=== PATIENT | male | born 1960 ===

== ENCOUNTER 2021-07-08 10:08 | Inpatient (IN) | payer MEDICAID ==
[2021-07-08] VITALS (13 sets, daily range): BP systolic 124–139; BP diastolic 78–86
[~2021-07-08] VITALS: Ht 170 cm; Wt 65.1 kg
[2021-07-08] MEDS ORDERED: CEFEPIME INJECTION 1,000 MG in WATER (STERILE) FOR INJECTION 10 ML IV ONE (10:30)
[2021-07-08 10:37] LABS: BASOPHILS % (AUTO) 0 % (0-10); EOSINOPHILS % (AUTO) 0 % (0-10); HEMATOCRIT 41 % (40-54); HEMOGLOBIN 13.6 g/dL (13.3-17.7); LYMPHOCYTES # (AUTO) 1.3 10^3/uL (1.0-4.0); LYMPHOCYTES % (AUTO) 21 % (12-44); MEAN CORPUSCULAR HEMOGLOBIN 31 pg (25-34); MEAN CORPUSCULAR HGB CONC 33 g/dL (32-36); MEAN CORPUSCULAR VOLUME 92 fL (80-99); MEAN PLATELET VOLUME 10.4 fL (9.0-12.2); MONOCYTES # (AUTO) 0.8 10^3/uL (0.0-1.0); MONOCYTES % (AUTO) 12 % (0-12); NEUTROPHILS # (AUTO) 4.3 10^3/uL (1.8-7.8); NEUTROPHILS % (AUTO) 67 % (42-75); PLATELET COUNT 288 10^3/uL (130-400); WHITE BLOOD COUNT 6.4 10^3/uL (4.3-11.0)
[2021-07-08 10:57] LABS: ALBUMIN 3.1 GM/DL (3.2-4.5); BILIRUBIN,TOTAL 0.7 MG/DL (0.1-1.0); CALCIUM 8.5 MG/DL (8.5-10.1); CREATININE SERUM 1.03 MG/DL (0.60-1.30); POTASSIUM 4.4 MMOL/L (3.6-5.0); TOTAL PROTEIN 6.7 GM/DL (6.4-8.2)
--- NOTE | 2021-07-08 11:02 | Diagnostic Imaging Report ---
INDICATION: Covid positive, sepsis Frontal chest obtained at 1056 a.m. and compared to 07/23/2008. Heart and mediastinal silhouette are normal in appearance. There are patchy infiltrates in the perihilar region and lung bases on both sides suspicious for Covid pneumonia. There is no pneumothorax or pleural fluid. IMPRESSION: Bilateral infiltrates are present suspicious for Covid pneumonia. Dictated by: Dictated on workstation # [id number]
[2021-07-08 11:05] LABS: FIBRIN DEGRADATION PRODUCTS 0.9 UG/ML (0.00-0.49); INR 1.1 (0.8-1.4); PROTHROMBIN TIME PATIENT 14.5 SEC (12.2-14.7)
[2021-07-08 11:25] LABS: ABG BASE EXCESS 5.2 MMOL/L (-2.5-2.5); ABG OXYGEN SATURATION 100 % (94-100); ABG PCO2 41 MMHG (35-45); ABG PH 7.46 (7.37-7.43); ABG PO2 216 MMHG (79-93); ABG TCO2 30.2 MMOL/L (21.0-31.0)
[2021-07-08 11:31] LABS: ALLENS TEST YES-POS; INSPIRED O2 100%; PATIENT TEMP 98.5; VENTILATOR NO
[2021-07-08] MEDS ORDERED: NS IV 1000 ML 1,000 ML IV SCH (11:45)
[2021-07-08] MEDS ORDERED: inSUlin (REGULAR) HUMAN 1 UNIT/0.01 ML (CHARGE PER UNIT) SC ONE (11:45)
[2021-07-08] MEDS ORDERED: ENOXAPARIN 80 MG/0.8 ML (LOVENOX) SYR ONE (11:56)
[2021-07-08] MEDS ORDERED: ENOXAPARIN 80 MG/0.8 ML (LOVENOX) SYR SC ONE (12:00)
--- NOTE | 2021-07-08 12:05 | ED General ---
General Chief Complaint: Cough/Cold/Flu Symptoms Stated Complaint: COVID + Nursing Triage Note: PT FROM INFUSION PT SAT 83%. PT IN RESP DISTRESS, PT HAS COVID, PT DUSKY AND NAIL BEDS BLUEISH. PT HAS SL IN R AC #20 BY INFUSION AREA Source of Information: Patient Exam Limitations: No Limitations History of Present Illness Date Seen by Provider: Jul 08, 2021 Time Seen by Provider: 10:10 Initial Comments This 60-year-old gentleman presents to the emergency room with staff from the infusion clinic where he was to receive monoclonal antibodies but was found to be cyanotic and hypoxic. He has not been ill with COVID-19 since June 27. He tested positive on July 02 at the [facility] walk-in clinic. He reports shortness of breath and a cough that will stop. He otherwise denies other symptoms such as vomiting, diarrhea, pain, etc. Oxygen saturation was 83% on arrival to the ER. He was very pale and cyanotic in appearance. He was immediately laid in the prone position with high flow oxygen mask applied. This maintain saturations in the low 90s. RT was called to supply Vapotherm. Patient was not vaccinated. He has no local provider and he does not take any prescribed medications daily. He did receive a prescription for a couple of medications related to Covid. He does not know what these are. His and children are also ill. Allergies and Home Medications Allergies Coded Allergies: No Known Drug Allergies (Unverified , 07/08/21) Patient Home Medication List Home Medication List Reviewed: Yes Review of Systems Review of Systems Constitutional: see HPI, diaphoresis, weakness EENTM: no symptoms reported Respiratory: see HPI Cardiovascular: no symptoms reported Gastrointestinal: no symptoms reported Genitourinary: no symptoms reported Musculoskeletal: no symptoms reported Skin: no symptoms reported Psychiatric/Neurological: No Symptoms Reported Hematologic/Lymphatic: No Symptoms Reported Immunological/Allergic: no symptoms reported Past Ontmmqn-Klmdlb-Vqfaqi Hx Patient Social History Tobacco Use?: No Substance use?: No Alcohol Use?: No Past Medical History Surgeries: No Respiratory: No Cardiac: No Neurological: No Reproductive Disorders: No Genitourinary: No Gastrointestinal: No Musculoskeletal: No Endocrine: Yes Diabetes, Non-Insulin dep HEENT: No Cancer: No Psychosocial: No Physical Exam-Suspected Sepsis Physical Exam Vital Signs Vital Signs - First Documented 07/08/21 10:08 Pulse 81 Resp 42 B/P (MAP) 129/78 (95) Pulse Ox 83 O2 Delivery Room Air Capillary Refill : Less Than 3 Seconds Blood Pressure Mean: 95 Height, Weight, BMI Height: '" Weight: lbs. oz. 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 Norm as Tested Skin: warm/dry, diaphoresis, other (Cyanosis resolved with application of oxygen) Focused Exam Lactate Level 07/08/21 10:27: Lactic Acid Level 2.66*H Lactic Acid Level Laboratory Tests Test 07/08/21 10:27 Lactic Acid Level 2.66 MMOL/L (0.50-2.00) *H Progress/Results/Core Measures Suspected Sepsis SIRS Temperature: Pulse: 81 Respiratory Rate: 42 Laboratory Tests 07/08/21 10:27: White Blood Count 6.4 Blood Pressure 129 /78 Mean: 95 07/08/21 10:27: Lactic Acid Level 2.66*H Laboratory Tests 07/08/21 10:27: Creatinine 1.03, INR Comment 1.1, Platelet Count 288, Total Bilirubin 0.7 Results/Orders Lab Results Laboratory Tests Test 07/08/21 10:27 07/08/21 11:20 Range/Units White Blood Count 6.4 4.3-11.0 10^3/uL Red Blood Count 4.43 4.30-5.52 10^6/uL Hemoglobin 13.6 13.3-17.7 g/dL Hematocrit 41 40-54 % Mean Corpuscular Volume 92 80-99 fL Mean Corpuscular Hemoglobin 31 25-34 pg Mean Corpuscular Hemoglobin Concent 33 32-36 g/dL Red Cell Distribution Width 12.3 10.0-14.5 % Platelet Count 288 130-400 10^3/uL Mean Platelet Volume 10.4 9.0-12.2 fL Immature Granulocyte % (Auto) 1 % Neutrophils (%) (Auto) 67 42-75 % Lymphocytes (%) (Auto) 21 12-44 % Monocytes (%) (Auto) 12 0-12 % Eosinophils (%) (Auto) 0 0-10 % Basophils (%) (Auto) 0 0-10 % Neutrophils # (Auto) 4.3 1.8-7.8 10^3/uL Lymphocytes # (Auto) 1.3 1.0-4.0 10^3/uL Monocytes # (Auto) 0.8 0.0-1.0 10^3/uL Eosinophils # (Auto) 0.0 0.0-0.3 10^3/uL Basophils # (Auto) 0.0 0.0-0.1 10^3/uL Immature Granulocyte # (Auto) 0.0 0.0-0.1 10^3/uL Prothrombin Time 14.5 12.2-14.7 SEC INR Comment 1.1 0.8-1.4 Activated Partial Thromboplast Time 36 H 24-35 SEC D-Dimer 0.90 H 0.00-0.49 UG/ML Sodium Level 135 135-145 MMOL/L Potassium Level 4.4 3.6-5.0 MMOL/L Chloride Level 97 L 98-107 MMOL/L Carbon Dioxide Level 29 21-32 MMOL/L Anion Gap 9 5-14 MMOL/L Blood Urea Nitrogen 14 7-18 MG/DL Creatinine 1.03 0.60-1.30 MG/DL Estimat Glomerular Filtration Rate 74 BUN/Creatinine Ratio 14 Glucose Level 404 *H 70-105 MG/DL Lactic Acid Level 2.66 *H 0.50-2.00 MMOL/L Calcium Level 8.5 8.5-10.1 MG/DL Corrected Calcium 9.2 8.5-10.1 MG/DL Total Bilirubin 0.7 0.1-1.0 MG/DL Aspartate Amino Transf (AST/SGOT) 62 H 5-34 U/L Alanine Aminotransferase (ALT/SGPT) 54 0-55 U/L Alkaline Phosphatase 49 40-136 U/L Lactate Dehydrogenase 404 H 125-220 U/L C-Reactive Protein High Sensitivity 13.74 H 0.00-0.50 MG/DL Total Protein 6.7 6.4-8.2 GM/DL Albumin 3.1 L 3.2-4.5 GM/DL Procalcitonin 0.11 H <0.10 NG/ML Blood Gas Puncture Site LR Blood Gas Patient Temperature 98.5 Arterial Blood pH 7.46 H 7.37-7.43 Arterial Blood Partial Pressure CO2 41 35-45 MMHG Arterial Blood Partial Pressure O2 216 H 79-93 MMHG Arterial Blood HCO3 29 H 23-27 MMOL/L Arterial Blood Total CO2 30.2 21.0-31.0 MMOL/L Arterial Blood Oxygen Saturation 100 94-100 % Arterial Blood Base Excess 5.2 H -2.5-2.5 MMOL/L Higinio Test YES-POS Blood Gas Ventilator Setting NO Blood Gas Inspired Oxygen 100% My Orders Orders - LITA PARNELL MD Cbc With Automated Diff (07/08/21 10:26) Comprehensive Metabolic Panel (07/08/21 10:26) Blood Culture (07/08/21 10:26) Sputum Culture (07/08/21 10:26) Urinalysis (07/08/21 10:26) Urine Culture (07/08/21 10:26) Protime With Inr (07/08/21 10:26) Partial Thromboplastin Time (07/08/21 10:26) Chest 1 View, Ap/Pa Only (07/08/21 10:26) Ed Iv/Invasive Line Start (07/08/21 10:26) Ed Iv/Invasive Line Start (07/08/21 10:26) Vital Signs Adult Sepsis Patie Q15M (07/08/21 10:26) O2 (07/08/21 10:26) Remove Rings In Anticipation O (07/08/21 10:26) Lactic Acid Analyzer (07/08/21 10:26) Fibrin Degradation Products (07/08/21 10:26) Procalcitonin (Pct) (07/08/21 10:26) Hs C Reactive Protein (07/08/21 10:26) LDH (07/08/21 10:26) Covid-19 External Lab Results (07/08/21 10:26) Isolation Central Supply Req (07/08/21 10:26) Dexamethasone Injection (Decadron Inje (07/08/21 10:30) Cefepime Injection (Maxipime Injection) (07/08/21 10:30) Arterial Blood Gas (07/08/21 10:59) Ns Iv 1000 Ml (Sodium Chloride 0.9%) (07/08/21 11:45) Insulin (Regular) Human (Novolin R (Per (07/08/21 11:45) Enoxaparin Injection (Lovenox Injection) (07/08/21 12:00) Enoxaparin Injection (Lovenox Injection) (07/08/21 11:56) Medications Given in ED Current Medications Medications Dose Ordered Sig/Bre Route Start Time Stop Time Status Last Admin Dose Admin Cefepime HCl 1000 mg/Sterile Water 10 ml @ 200 mls/hr ONCE ONCE IV 07/08/21 10:30 07/08/21 10:32 DC 07/08/21 11:35 200 MLS/HR Dexamethasone Sodium Phosphate 6 mg ONCE ONCE IV 07/08/21 10:30 07/08/21 10:31 DC 07/08/21 11:21 6 MG Enoxaparin Sodium 80 mg ONCE ONCE SC 07/08/21 12:00 07/08/21 12:01 07/08/21 11:57 80 MG Insulin Human Regular 5 unit ONCE ONCE SC 07/08/21 11:45 07/08/21 11:46 DC 07/08/21 11:54 5 UNIT Vital Signs/I&O 07/08/21 10:08 Pulse 81 Resp 42 B/P (MAP) 129/78 (95) Pulse Ox 83 O2 Delivery Room Air Capillary Refill : Less Than 3 Seconds Blood Pressure Mean: 95 Progress Note : Progress Note Patient received a dose of IV dexamethasone. After review of chest x-ray cefepime was added. Hyperglycemia of 400 was noted on labs. A liter of IV fluid and 5 units of subcutaneous insulin were ordered to treat the hyperglycemia. Patient states he would be willing to receive convalescent plasma if needed. He reports desire for full code. Diagnostic Imaging Diagonstic Imaging: Xray Plain Films/CT/US/NM/MRI: chest Comments NAME: [facility] REC#: [id number] PT STATUS: REG ER : 1960 PHYSICIAN: LITA PARNELL MD ADMIT DATE: 07/08/21/ER Draft Date of Exam:07/08/21 CHEST 1 VIEW, AP/PA ONLY INDICATION: Covid positive, sepsis Frontal chest obtained at 1056 a.m. and compared to 07/23/2008. Heart and mediastinal silhouette are normal in appearance. There are patchy infiltrates in the perihilar region and lung bases on both sides suspicious for Covid pneumonia. There is no pneumothorax or pleural fluid. IMPRESSION: Bilateral infiltrates are present suspicious for Covid pneumonia. Dictated on workstation # [id number] Dict: 07/08/21 1059 Trans: 07/08/21 1102 [facility] [id number] Interpreted by: TALITA GROVE MD Departure Communication (Admissions) Time/Spoke to Admitting Phy: 11:50 Dr. Wilburn Impression Primary Impression: Pneumonia due to COVID-19 virus Additional Impressions: Hypoxia Hyperglycemia Disposition: ADMITTED INPATIENT Condition: Improved Admissions Decision to Admit Reason: Admit from ER (General) Decision to Admit/Date: Jul 08, 2021 Time/Decision to Admit Time: 10:10 Departure-Patient Inst. Referrals: NO,LOCAL PHYSICIAN (PCP) Primary Care Physician BELINDA VALENTINE (Family) Primary Care Physician LITA PARNELL MD Jul 08, 2021 12:05
[2021-07-08] MEDS ORDERED: CATHETER FLUSH 10 ML SYR IV PRN (14:15)
[2021-07-08] MEDS ORDERED: ONDANSETRON 4 MG/2 ML (SDV) Z0FRAN IV PRN (14:15)
[2021-07-08] MEDS ORDERED: ACETAMINOPHEN 325 MG TABLET PO PRN (14:15)
[2021-07-08] MEDS ORDERED: guaiFENesin SYRUP 100 MG/5 ML 10 ML (ROBITUSSIN SF) PO PRN (14:15)
[2021-07-08] MEDS: NS IV 1000 ML 1,000 ML IV SCH ×2 (14:32→23:31)
--- NOTE | 2021-07-08 15:16 | History & Physical-Hospitalist ---
History of Present Illness HPI/Chief Complaint Pt is a 60yoCM with a PMH of DMII who presented to the ER due to hypoxia. He was diagnosed with COVID on 07/02 and symptoms began 06/27. he was supposed to get the monoclonal antibody infusion today but when he presented to the infusion center he was alegria in color and hypoxic. He was referred to the ER. He was satting 83% on arrival and placed on 10lpm and ultimately required vapotherm to maintain sats. He reports persistent cough and shortness of breath but denies nausea, vomiting, diarrhea. He reports feeling much better now that he is on oxygen than when he arrived. He is mostly concerned about checking on his as he forgot his cell phone. Source: patient Exam Limitations: language barrier (patient declined interpretor line) Date Seen 07/08/21 Time Seen by a Provider: 15:10 Attending Physician Crystal Wilburn MD PCP No,Local Physician Referring Physician Date of Admission Jul 08, 2021 at 12:00 Home Medications & Allergies Home Medications Reviewed patient Home Medication Reconciliation performed by pharmacy medication reconciliations service technician and/or nursing. Patients Allergies have been reviewed. Allergies Allergies Coded Allergies No Known Drug Allergies (Unverified07/08/21) Past Glpfcap-Qcwdxp-Indxtb Hx Patient Social History Marrital Status: Tobacco Use?: No Smoking Status: Never a Smoker Substance use?: No Alcohol Use?: No Pt feels they are or have been: No Immunizations Up To Date First/Initial COVID19 Vaccinat: Unvaccinated Current Status Advance Directives: No Communicates: Signs Primary Language: Indonesian Preferred Spoken Language: Indonesian Is interpretation needed?: Yes Past Medical History Diabetes, Non-Insulin dep Family Medical History Reviewed Nursing Family Hx No Pertinent Family Hx Review of Systems Constitutional: No chills, No fever; malaise EENTM: no symptoms reported Respiratory: cough, dyspnea on exertion, short of breath Cardiovascular: No chest pain, No palpitations Gastrointestinal: no symptoms reported Genitourinary: no symptoms reported Musculoskeletal: no symptoms reported Skin: no symptoms reported Psychiatric/Neurological: No Symptoms Reported Physical Exam Physical Exam Vital Signs Vital Signs - First Documented 07/08/21 13:11 Temp 35.7 Capillary Refill : Less Than 3 Seconds Height, Weight, BMI Height: '" Weight: lbs. oz. kg; 23.87 BMI Method: General Appearance: No Apparent Distress, WD/WN, Thin HEENT: PERRL/EOMI, Moist Mucous Membranes; No Scleral Icterus (L), No Scleral Icterus (R) Neck: Normal Inspection, Supple Respiratory: No Accessory Muscle Use, Decreased Breath Sounds, Other (On vapotherm) Cardiovascular: Regular Rate, Rhythm, No Murmur Gastrointestinal: Normal Bowel Sounds, Soft Extremity: No Calf Tenderness, No Pedal Edema Neurologic/Psychiatric: Alert, Oriented x3, Normal Mood/Affect Results Results/Procedures Labs Laboratory Tests 07/08/21 10:27 07/09/21 04:17 07/10/21 03:15 Patient resulted labs reviewed. Imaging: Reviewed Imaging Report Imaging [facility] [place] NAME: ALEXANDRU [facility] REC#: [id number] PT STATUS: ADM IN : 1960 PHYSICIAN: LITA PARNELL MD ADMIT DATE: 07/08/21/ICU Signed Date of Exam:07/08/21 CHEST 1 VIEW, AP/PA ONLY INDICATION: Covid positive, sepsis Frontal chest obtained at 1056 a.m. and compared to 07/23/2008. Heart and mediastinal silhouette are normal in appearance. There are patchy infiltrates in the perihilar region and lung bases on both sides suspicious for Covid pneumonia. There is no pneumothorax or pleural fluid. IMPRESSION: Bilateral infiltrates are present suspicious for Covid pneumonia. Dictated by: Dictated on workstation # [id number] Dict: 07/08/21 1059 Trans: 07/08/21 1216 [facility] [id number] Interpreted by: TALITA GROVE MD Electronically signed by: TALITA GROVE MD 07/08/21 1216 Assessment/Plan Admission Diagnosis Acute hypoxic respiratory failure due to COVID19 Admission Status: Inpatient Order (span 2 midnights) Reason for Inpatient Admission: see below Assessment and Plan Acute hypoxic respiratory failure due to COVID19 Currently on vapotherm Continue decadron Consented to baricitnib under EUA Does not qualify for remdesivir due to high oxygen requirement Lovenox IS MAT protocol NIDDMII SSI Not normally on medication but does not follow with any physician a1c ordered anticipate higher blood sugars due to decadron DVT ppx: CRYSTAL Miner MD Jul 08, 2021 15:15
--- NOTE | 2021-07-08 16:17 | Tele-ICU Consult ---
History of Present Illness History of Present Illness Date Seen by Provider: Jul 08, 2021 Time Seen by Provider: 16:17 Date of Admission Allergies and Home Medications Allergies Coded Allergies: No Known Drug Allergies (Unverified , 07/08/21) Past Medical/Social/Family Hx Patient Social History Marrital Status: Tobacco Use?: No Smoking Status: Never a Smoker Substance use?: No Alcohol Use?: No Pt stated abuse/neglect: No Immunizations Up To Date First/Initial COVID19 Vaccinat: Unvaccinated Current Status Advance Directives: No Communicates: Signs Primary Language: Mexican Preferred Spoken Language: Mexican Is interpretation needed?: Yes Review of Systems Constitutional: see HPI Sepsis Event Evaluation Height, Weight, BMI Height: '" Weight: lbs. oz. kg; 23.87 BMI Method: Exam Exam Patient acknowledged, consented, and participated in this virtual visit which was conducted using real time audio/video Vital Signs Date Time Temp Pulse Resp B/P (MAP) Pulse Ox O2 Delivery O2 Flow Rate FiO2 07/08/21 15:00 71 21 132/81 (98) 97 Vapotherm 20.00 50.00 07/08/21 14:00 71 31 124/83 (97) 97 Vapotherm 20.00 50.00 07/08/21 13:55 36.0 98 Vapotherm 20.00 50.00 07/08/21 13:11 35.7 73 34 134/86 (102) 100 Vapotherm 35.00 100.00 07/08/21 13:00 73 07/08/21 13:00 134/86 (102) Vapotherm 20.00 50.00 07/08/21 12:29 65 35 122/65 (95) 95 Vapotherm 10.00 07/08/21 10:08 OxyMask 10.00 07/08/21 10:08 81 42 129/78 (95) 83 Room Air 07/08/21 10:08 95 OxyMask 10.00 83 Height & Weight Height: '" Weight: lbs. oz. kg; 23.87 BMI Method: General Appearance: No Apparent Distress, WD/WN, Thin HEENT: PERRL/EOMI, Moist Mucous Membranes; No Scleral Icterus (L), No Scleral Icterus (R) Neck: Normal Inspection, Supple Respiratory: No Accessory Muscle Use, Decreased Breath Sounds, Other (On vapotherm) Cardiovascular: Regular Rate, Rhythm, No Murmur Capillary Refill: Less Than 3 Seconds Extremity: No Calf Tenderness, No Pedal Edema Neurologic/Psychiatric: Alert, Oriented x3, Normal Mood/Affect Results Lab Laboratory Tests 07/08/21 10:27 Assessment/Plan Assessment/Plan (Tele-ICU Physician , consultation) Available chart/ vitals / labs / Images reviewed H&P is from ER notes Patient's information available about PMH, Shx, Fhx allergy reviewed in EMR. ROS as per chart and RN report Patient admitted 07/08 - from the infusion clinic, ARF-COVID PNA, VAPOTHERM 35L 100% Now in ICU, hemodynamically stable Video assessment done using teleICU camera, rest of exam as per RN Discussed with RN. Consultants: A/P AHRF / ARDS due to severe COVID19 -VAPOTHERM 20 L 50 % -prone position if able - conservative fluid strategy (aim for even or negative fluid balance SNDC-Tucnhzdkrkw-5/COVID-19 PNA ( Not vaccinated , symptoms 06/27 , Dx 07/02 ) -Remdesivir- as per local MD ( given severe dz and time frame no major clinical benefit ) -Steroids IV - started 07/08 -Hypercoagulable state , DDIMER WNL on 07/08 -> as per bedside MD lovenox full dose started Suspected superimposed bact PNA -empiric cefepime strted on 07/08 with PCT 0.1 Hyperglycemia ( no known dx of DM - ISS , close f/up on steroids Elevated lactate due to hypoxia - improved Lines : periph , (Central Line Necessity Reviewed) Becker: OG: Nutrition: Analgesia: Anxiety/ delirium VTE Prophylaxis: lovenox Stress Ulcer Prophylaxis: po Glycemic Control: Plans in collaboration with bedside consultants and IM MDs. Discussed with RN to reach out if any questions or concerns A total of 30 minutes of critical care time was devoted to this patient today, required to treat and/or prevent further deterioration of critical care c ondition ( as above ) . RIVERA SILVEIRA MD Jul 08, 2021 16:17
[2021-07-08] MEDS: BARICITINIB 2 MG (OLUMIANT)TABLET PO SCH (18:09)
[2021-07-08] MEDS: inSUlin ASPART (NovoLOG) 1 UNIT/0.01 ML (CHARGE PER UNIT) SQ SCH ×2 (18:09→20:33)
[2021-07-08] MEDS: CEFEPIME 1,000 MG/SWFI 10 ML IV PUSH IV SCH ×4 (18:09→23:31)
[2021-07-09] VITALS (24 sets, daily range): BP systolic 123–155; BP diastolic 74–90
[2021-07-09] MEDS ORDERED: ENOXAPARIN 80 MG/0.8 ML (LOVENOX) SYR SC SCH
[2021-07-09 04:27] LABS: BASOPHILS % (AUTO) 0 % (0-10); EOSINOPHILS % (AUTO) 0 % (0-10); HEMATOCRIT 40 % (40-54); HEMOGLOBIN 13.1 g/dL (13.3-17.7); LYMPHOCYTES # (AUTO) 0.9 10^3/uL (1.0-4.0); LYMPHOCYTES % (AUTO) 25 % (12-44); MEAN CORPUSCULAR HEMOGLOBIN 31 pg (25-34); MEAN CORPUSCULAR HGB CONC 33 g/dL (32-36); MEAN CORPUSCULAR VOLUME 93 fL (80-99); MEAN PLATELET VOLUME 10.5 fL (9.0-12.2); MONOCYTES # (AUTO) 0.4 10^3/uL (0.0-1.0); MONOCYTES % (AUTO) 12 % (0-12); NEUTROPHILS # (AUTO) 2.2 10^3/uL (1.8-7.8); NEUTROPHILS % (AUTO) 63 % (42-75); PLATELET COUNT 323 10^3/uL (130-400); WHITE BLOOD COUNT 3.5 10^3/uL (4.3-11.0)
[2021-07-09 04:43] LABS: POTASSIUM 4.3 MMOL/L (3.6-5.0)
[2021-07-09 04:44] LABS: CALCIUM 8.6 MG/DL (8.5-10.1)
[2021-07-09 04:48] LABS: PHOSPHORUS 2.1 MG/DL (2.3-4.7)
[2021-07-09 04:49] LABS: CREATININE SERUM 0.8 MG/DL (0.60-1.30)
[2021-07-09 04:51] LABS: MAGNESIUM 2.2 MG/DL (1.6-2.4)
[2021-07-09] MEDS: CEFEPIME 1,000 MG/SWFI 10 ML IV PUSH IV SCH ×8 (05:11→23:26)
[2021-07-09] MEDS: inSUlin ASPART (NovoLOG) 1 UNIT/0.01 ML (CHARGE PER UNIT) SQ SCH ×4 (05:11→20:39)
[2021-07-09] MEDS: ENOXAPARIN 80 MG/0.8 ML (LOVENOX) SYR SC SCH ×2 (09:03→20:20)
[2021-07-09] MEDS: BARICITINIB 2 MG (OLUMIANT)TABLET PO SCH (09:03)
--- NOTE | 2021-07-09 10:18 | Progress Note - Hospitalist ---
Subjective HPI/CC On Admission Date Seen by Provider: Jul 09, 2021 Time Seen by Provider: 10:15 Pt is a 60yoCM with a PMH of DMII who presented to the ER due to hypoxia. He was diagnosed with COVID on 07/02 and symptoms began 06/27. he was supposed to get the monoclonal antibody infusion today but when he presented to the infusion center he was alegria in color and hypoxic. He was referred to the ER. He was satting 83% on arrival and placed on 10lpm and ultimately required vapotherm to maintain sats. He reports persistent cough and shortness of breath but denies nausea, vomiting, diarrhea. He reports feeling much better now that he is on oxygen than when he arrived. He is mostly concerned about checking on his as he forgot his cell phone. Subjective/Events-last exam Pt reports breathing ok today. No complaints. About to eat breakfast. Focused Exam Lactate Level 07/08/21 10:27: Lactic Acid Level 2.66*H 07/08/21 13:25: Lactic Acid Level 1.42 Objective Exam Vital Signs Vital Signs Date Time Temp Pulse Resp B/P (MAP) Pulse Ox O2 Delivery O2 Flow Rate FiO2 07/09/21 10:00 66 28 135/78 (97) 91 Vapotherm 25.00 45.00 07/09/21 07:53 35.9 07/09/21 07:53 45 Capillary Refill : Less Than 3 Seconds General Appearance: No Apparent Distress, Thin Respiratory: No Accessory Muscle Use, Rhonci; No Wheezing; Other (on Vapotherm) Cardiovascular: Regular Rate, Rhythm, No Murmur Gastrointestinal: Normal Bowel Sounds, Soft Neurologic/Psychiatric: Alert, Oriented x3 Results/Procedures Lab Laboratory Tests 07/08/21 10:27 07/09/21 04:17 Patient resulted labs reviewed. Imaging: Reviewed Imaging Report Assessment/Plan Assessment and Plan Assess & Plan/Chief Complaint Acute hypoxic respiratory failure due to COVID19 Currently on vapotherm, wean as able Continue decadron Continue baricitnib under EUA Does not qualify for remdesivir due to high oxygen requirement Lovenox IS MAT protocol NIDDMII SSI Not normally on medication but does not follow with any physician a1c ordered anticipate higher blood sugars due to decadron DVT ppx: Lovenox CRYSTAL DUENAS MD Jul 09, 2021 10:18
--- NOTE | 2021-07-09 12:12 | Tele-ICU Progress Note ---
Subjective Date Seen by a Provider: Jul 09, 2021 Time Seen by a Provider: 12:12 Sepsis Event Evaluation Height, Weight, BMI Height: '" Weight: lbs. oz. kg; 23.87 BMI Method: Focused Exam Lactate Level 07/08/21 10:27: Lactic Acid Level 2.66*H 07/08/21 13:25: Lactic Acid Level 1.42 Exam Exam Patient acknowledged, consented, and participated in this virtual visit which was conducted using real time audio/video Vital Signs Date Time Temp Pulse Resp B/P (MAP) Pulse Ox O2 Delivery O2 Flow Rate FiO2 07/09/21 12:00 61 19 151/89 (109) 96 Vapotherm 25.00 45.00 07/09/21 11:11 94 High Flow N/C 6.00 07/09/21 11:00 64 21 140/85 (103) 94 Vapotherm 25.00 45.00 07/09/21 10:00 66 28 135/78 (97) 91 Vapotherm 25.00 45.00 07/09/21 09:00 62 20 135/87 (103) 93 Vapotherm 25.00 45.00 07/09/21 08:00 64 10 131/79 (103) 93 Vapotherm 25.00 45.00 07/09/21 07:53 35.9 07/09/21 07:53 96 Vapotherm 25.00 45 07/09/21 07:00 60 07/09/21 07:00 57 16 141/79 (105) 95 Vapotherm 25.00 65.00 07/09/21 06:00 61 24 141/80 (100) 96 Vapotherm 25.00 65.00 07/09/21 05:00 59 19 141/84 (103) 91 Vapotherm 25.00 65.00 07/09/21 04:33 36.0 Vapotherm 25.00 65.00 07/09/21 04:06 Vapotherm 20.00 45 07/09/21 04:00 60 19 146/87 (106) 94 Vapotherm 20.00 45.00 07/09/21 03:00 58 16 139/86 (103) 95 Vapotherm 20.00 45.00 07/09/21 02:00 60 23 135/79 (97) 94 Vapotherm 20.00 45.00 07/09/21 01:50 96 Vapotherm 20.00 45 07/09/21 01:00 63 07/09/21 01:00 62 20 131/77 (95) 94 Vapotherm 20.00 45.00 07/09/21 00:00 68 20 130/74 (92) 93 Vapotherm 20.00 45.00 07/08/21 23:51 Vapotherm 20.00 45.00 07/08/21 23:50 Vapotherm 20.00 45 07/08/21 23:00 70 20 131/78 (95) 96 Vapotherm 25.00 55.00 07/08/21 22:02 97 Vapotherm 25.00 55 07/08/21 22:00 72 19 126/78 (94) 97 Vapotherm 25.00 55.00 07/08/21 21:43 Vapotherm 25.00 55.00 07/08/21 21:00 73 14 132/79 (96) 93 Vapotherm 15.00 30.00 07/08/21 20:36 94 Vapotherm 15.00 30 07/08/21 20:30 36.6 75 25 138/82 (100) 94 Vapotherm 15.00 30.00 07/08/21 20:00 79 26 131/82 (98) 96 Vapotherm 15.00 30.00 07/08/21 19:00 80 07/08/21 19:00 80 23 136/82 (100) 91 Vapotherm 15.00 30.00 07/08/21 18:17 95 Vapotherm 20.00 35.00 07/08/21 18:00 69 27 139/85 (103) 95 Vapotherm 20.00 50.00 07/08/21 18:00 95 Vapotherm 25.00 40 07/08/21 17:00 68 27 135/81 (99) 98 Vapotherm 20.00 50.00 07/08/21 16:00 71 20 126/81 (96) 96 Vapotherm 20.00 50.00 07/08/21 15:00 71 21 132/81 (98) 97 Vapotherm 20.00 50.00 07/08/21 14:15 100 Vapotherm 35.00 100 07/08/21 14:00 71 31 124/83 (97) 97 Vapotherm 20.00 50.00 07/08/21 13:55 36.0 98 Vapotherm 20.00 50.00 07/08/21 13:11 35.7 73 34 134/86 (102) 100 Vapotherm 35.00 100.00 07/08/21 13:00 73 07/08/21 13:00 134/86 (102) Vapotherm 20.00 50.00 07/08/21 12:29 65 35 122/65 (95) 95 Vapotherm 10.00 I & O 07/09/21 07:00 Intake Total 1560 ml Output Total 750 ml Balance 810 ml Height & Weight Height: '" Weight: lbs. oz. kg; 23.87 BMI Method: General Appearance: No Apparent Distress, Thin HEENT: PERRL/EOMI, Moist Mucous Membranes; No Scleral Icterus (L), No Scleral Icterus (R) Neck: Normal Inspection, Supple Respiratory: No Accessory Muscle Use, Rhonci; No Wheezing; Other (on Vapotherm) Cardiovascular: Regular Rate, Rhythm, No Murmur Capillary Refill: Less Than 3 Seconds Extremity: No Calf Tenderness, No Pedal Edema Neurologic/Psychiatric: Alert, Oriented x3 Results Lab Laboratory Tests 07/08/21 10:27 07/09/21 04:17 Assessment/Plan Assessment/Plan (Tele-ICU Physician , Progress Note ) Available chart/ vitals / labs / Images reviewed Video assessment done using teleICU camera, rest of exam as per RN Discussed with RN , EXAM PER RN Events overnight : Afebrile I/O = pos 800 Drips: Pressors: , hemodynamically stable Consultants: Hospital course: 07/08 - from the infusion clinic, ARF-COVID PNA, VAPOTHERM 35L 100% 07/09 - Vapotherm 25L 45% A/P AHRF / ARDS due to severe COVID19 -VAPOTHERM Vapotherm 25L 45% - IMPROVING -prone position if able - conservative fluid strategy (aim for even or negative fluid balance JJVG-Fjavonsthlz-6/COVID-19 PNA ( Not vaccinated , symptoms 06/27 , Dx 07/02 ) - olumiant 07/08 -> -Steroids IV - started 07/08 -Hypercoagulable state , DDIMER WNL on 07/08 -> as per bedside lovenox full dose started Suspected superimposed bact PNA -empiric cefepime strted on 07/08 with PCT 0.1 Hyperglycemia ( no known dx of DM - ISS , close f/up on steroids Lines : periph , (Central Line Necessity Reviewed) Becker: OG: Nutrition: Analgesia: Anxiety/ delirium VTE Prophylaxis: lovenox Stress Ulcer Prophylaxis: po Glycemic Control: Plans in collaboration with bedside consultants and IM MDs. Discussed with RN to reach out if any questions or concerns A total of 30 minutes of critical care time was devoted to this patient today, required to treat and/or prevent further deterioration of critical care condition ( as above ) . RIVERA SILVEIRA MD Jul 09, 2021 12:12
[2021-07-09] MEDS: NS IV 1000 ML 1,000 ML IV SCH (12:16)
[2021-07-09 18:09] LABS: BILIRUBIN,URINE NEGATIVE (NEGATIVE); CLARITY,URINE CLEAR; COLOR,URINE YELLOW; GLUCOSE, URINE (UA) 2+ (NEGATIVE); KETONES,URINE TRACE (NEGATIVE); LEUKOCYTE ESTERASE ,URINE NEGATIVE (NEGATIVE); NITRITE,URINE NEGATIVE (NEGATIVE); PH,URINE 6.5 (5-9); PROTEIN,URINE NEGATIVE (NEGATIVE)
[2021-07-09 18:15] LABS: BACTERIA,URINE NEGATIVE /HPF; SQUAMOUS EPITHELIAL CELL,UR RARE /HPF; WBC,URINE RARE /HPF
[2021-07-09 18:16] LABS: HYALINE CASTS, URINE RARE /LPF
[2021-07-10] VITALS (13 sets, daily range): BP systolic 129–170; BP diastolic 78–97
[2021-07-10] MEDS: NS IV 1000 ML 1,000 ML IV SCH (03:27)
[2021-07-10 03:31] LABS: BASOPHILS % (AUTO) 0 % (0-10); EOSINOPHILS % (AUTO) 0 % (0-10); HEMATOCRIT 38 % (40-54); HEMOGLOBIN 12.6 g/dL (13.3-17.7); LYMPHOCYTES # (AUTO) 0.9 10^3/uL (1.0-4.0); LYMPHOCYTES % (AUTO) 11 % (12-44); MEAN CORPUSCULAR HEMOGLOBIN 31 pg (25-34); MEAN CORPUSCULAR HGB CONC 34 g/dL (32-36); MEAN CORPUSCULAR VOLUME 92 fL (80-99); MEAN PLATELET VOLUME 10.8 fL (9.0-12.2); MONOCYTES # (AUTO) 0.8 10^3/uL (0.0-1.0); MONOCYTES % (AUTO) 9 % (0-12); NEUTROPHILS # (AUTO) 6.5 10^3/uL (1.8-7.8); NEUTROPHILS % (AUTO) 80 % (42-75); PLATELET COUNT 357 10^3/uL (130-400); WHITE BLOOD COUNT 8.2 10^3/uL (4.3-11.0)
[2021-07-10 03:47] LABS: POTASSIUM 4.1 MMOL/L (3.6-5.0)
[2021-07-10 03:48] LABS: CALCIUM 8.2 MG/DL (8.5-10.1)
[2021-07-10 03:52] LABS: PHOSPHORUS 2.5 MG/DL (2.3-4.7)
[2021-07-10 03:53] LABS: CREATININE SERUM 0.72 MG/DL (0.60-1.30)
[2021-07-10 03:55] LABS: MAGNESIUM 2.1 MG/DL (1.6-2.4)
[2021-07-10] MEDS: CEFEPIME 1,000 MG/SWFI 10 ML IV PUSH IV SCH ×6 (05:30→17:51)
[2021-07-10] MEDS: inSUlin ASPART (NovoLOG) 1 UNIT/0.01 ML (CHARGE PER UNIT) SQ SCH ×4 (05:31→21:55)
--- NOTE | 2021-07-10 08:40 | Progress Note - Hospitalist ---
Subjective HPI/CC On Admission Date Seen by Provider: Jul 10, 2021 Time Seen by Provider: 08:37 Pt is a 60yoCM with a PMH of DMII who presented to the ER due to hypoxia. He was diagnosed with COVID on 07/02 and symptoms began 06/27. he was supposed to get the monoclonal antibody infusion today but when he presented to the infusion center he was alegria in color and hypoxic. He was referred to the ER. He was satting 83% on arrival and placed on 10lpm and ultimately required vapotherm to maintain sats. He reports persistent cough and shortness of breath but denies nausea, vomiting, diarrhea. He reports feeling much better now that he is on oxygen than when he arrived. He is mostly concerned about checking on his as he forgot his cell phone. Subjective/Events-last exam Pt reports doing well. Off Vapotherm. No complaints. Breathing easier. Was on 10lpm HFNC satting 98% i titrated down to 7lpm while at bedside. Focused Exam Lactate Level 07/08/21 10:27: Lactic Acid Level 2.66*H 07/08/21 13:25: Lactic Acid Level 1.42 Objective Exam Vital Signs Vital Signs Date Time Temp Pulse Resp B/P (MAP) Pulse Ox O2 Delivery O2 Flow Rate FiO2 07/10/21 08:10 52 23 159/78 (105) 98 High Flow N/C 10.00 07/10/21 08:00 35.6 07/09/21 16:00 45 Capillary Refill : Less Than 3 Seconds General Appearance: No Apparent Distress, Thin Respiratory: No Accessory Muscle Use, Decreased Breath Sounds; No Wheezing Cardiovascular: Regular Rate, Rhythm, No Murmur Neurologic/Psychiatric: Alert, Oriented x3 Results/Procedures Lab Laboratory Tests 07/10/21 03:15 Patient resulted labs reviewed. Imaging: Reviewed Imaging Report Assessment/Plan Assessment and Plan Assess & Plan/Chief Complaint Acute hypoxic respiratory failure due to COVID19 Currently on HFNC, transfer to the floor Continue decadron Continue baricitnib under EUA Does not qualify for remdesivir due to high oxygen requirement Lovenox IS MAT protocol NIDDMII SSI Not normally on medication but does not follow with any physician a1c 9.6 anticipate higher blood sugars due to decadron DVT ppx: Lovenox CRYSTAL DUENAS MD Jul 10, 2021 08:40
--- NOTE | 2021-07-10 08:47 | Tele-ICU Progress Note ---
Subjective Date Seen by a Provider: Jul 10, 2021 Time Seen by a Provider: 08:25 Subjective/Events-last exam Patient with Covid pneumonia was on Vapotherm currently on 7 L high flow nasal cannula. He is resting comfortably with oxygen saturation 94 to 95%. Patient will be transferred to fourth floor for monitoring and management. Reviewed with the RN and video visit made Sepsis Event Evaluation Height, Weight, BMI Height: '" Weight: lbs. oz. kg; 23.87 BMI Method: Focused Exam Lactate Level 07/08/21 10:27: Lactic Acid Level 2.66*H 07/08/21 13:25: Lactic Acid Level 1.42 Exam Exam Patient acknowledged, consented, and participated in this virtual visit which was conducted using real time audio/video Vital Signs Date Time Temp Pulse Resp B/P (MAP) Pulse Ox O2 Delivery O2 Flow Rate FiO2 07/10/21 08:10 52 23 159/78 (105) 98 High Flow N/C 10.00 07/10/21 08:00 35.6 07/10/21 07:00 52 15 134/85 (101) 90 High Flow N/C 10.00 07/10/21 07:00 51 07/10/21 06:08 High Flow N/C 10.00 07/10/21 06:00 53 29 129/97 (108) 92 High Flow N/C 6.00 07/10/21 05:00 48 24 147/87 (107) 94 High Flow N/C 6.00 07/10/21 04:00 48 16 146/83 (104) 96 High Flow N/C 6.00 07/10/21 03:24 High Flow N/C 6.00 07/10/21 03:00 50 22 157/94 (115) 97 High Flow N/C 6.00 07/10/21 02:00 54 29 130/80 (97) 94 High Flow N/C 6.00 07/10/21 01:00 52 23 154/82 (106) 93 High Flow N/C 6.00 07/10/21 01:00 52 07/10/21 00:00 54 19 144/82 (102) 94 High Flow N/C 6.00 07/09/21 23:32 36.0 07/09/21 23:31 High Flow N/C 6.00 07/09/21 23:00 56 24 147/82 (103) 91 High Flow N/C 6.00 07/09/21 22:00 63 28 140/80 (100) 94 High Flow N/C 6.00 07/09/21 21:00 64 20 148/83 (104) 96 High Flow N/C 6.00 07/09/21 20:25 High Flow N/C 6.00 07/09/21 20:19 74 26 143/82 (102) 96 High Flow N/C 6.00 07/09/21 19:27 35.8 07/09/21 19:00 High Flow N/C 6.00 07/09/21 19:00 66 28 136/78 (97) 94 High Flow N/C 6.00 07/09/21 19:00 70 07/09/21 18:00 66 28 155/90 (111) 96 Vapotherm 25.00 45.00 07/09/21 17:00 58 12 140/83 (102) 96 Vapotherm 25.00 45.00 07/09/21 16:01 35.8 07/09/21 16:00 Vapotherm 20.00 45 07/09/21 16:00 62 28 141/85 (103) 96 Vapotherm 25.00 45.00 07/09/21 15:00 67 21 123/80 (94) 94 Vapotherm 25.00 45.00 07/09/21 14:00 70 29 125/76 (98) 92 Vapotherm 25.00 45.00 07/09/21 13:00 64 15 143/83 (104) 88 Vapotherm 25.00 45.00 07/09/21 13:00 62 07/09/21 12:00 35.9 07/09/21 12:00 Vapotherm 20.00 45 07/09/21 12:00 61 19 151/89 (109) 96 Vapotherm 25.00 45.00 07/09/21 11:11 94 High Flow N/C 6.00 07/09/21 11:00 64 21 140/85 (103) 94 Vapotherm 25.00 45.00 07/09/21 10:00 66 28 135/78 (97) 91 Vapotherm 25.00 45.00 07/09/21 09:00 62 20 135/87 (103) 93 Vapotherm 25.00 45.00 I & O 07/10/21 07:00 Intake Total 1090 ml Output Total 1525 ml Balance -435 ml Height & Weight Height: '" Weight: lbs. oz. kg; 23.87 BMI Method: General Appearance: No Apparent Distress, WD/WN, Thin HEENT: PERRL/EOMI, Moist Mucous Membranes; No Scleral Icterus (L), No Scleral Icterus (R) Neck: Normal Inspection, Supple Respiratory: No Accessory Muscle Use, Decreased Breath Sounds, Other (On vapotherm) Cardiovascular: Regular Rate, Rhythm, No Murmur Capillary Refill: Less Than 3 Seconds Extremity: No Calf Tenderness, No Pedal Edema Neurologic/Psychiatric: Alert, Oriented x3, Normal Mood/Affect Other comments physical exam per RN Results Lab Laboratory Tests 07/08/21 10:27 07/09/21 04:17 07/10/21 03:15 Radiology cxr reviewed Assessment/Plan Assessment/Plan 1. Acute hypoxic respiratory failure due to Covid pneumonia. Patient currently on high flow nasal cannula tolerating well without any distress. From critical care point of view he may be transferred to medical floor and follow-up. We will continue Decadron and Barcinitib 2. Type 2 diabetes mellitus uncontrolled. 3. Covidpneumonia. We will continue Decadron. Critical Care: Critically Ill Patient Time spent with patient (mins): 25 ABNER SANDRA MD Jul 10, 2021 08:47
[2021-07-10] MEDS: ENOXAPARIN 80 MG/0.8 ML (LOVENOX) SYR SC SCH ×2 (08:48→21:55)
[2021-07-10] MEDS: BARICITINIB 2 MG (OLUMIANT)TABLET PO SCH (08:48)
[2021-07-10] MEDS ORDERED: hydrALAZINE (APESOLINE) 20 MG/ML VIAL IV PRN (20:45)
[2021-07-11] VITALS (7 sets, daily range): BP systolic 128–165; BP diastolic 76–84
[2021-07-11] MEDS: CEFEPIME 1,000 MG/SWFI 10 ML IV PUSH IV SCH ×10 (00:03→23:55)
[2021-07-11] MEDS: inSUlin ASPART (NovoLOG) 1 UNIT/0.01 ML (CHARGE PER UNIT) SQ SCH ×4 (05:30→21:08)
[2021-07-11 05:49] LABS: BASOPHILS % (AUTO) 0 % (0-10); EOSINOPHILS % (AUTO) 0 % (0-10); HEMATOCRIT 41 % (40-54); HEMOGLOBIN 13.8 g/dL (13.3-17.7); LYMPHOCYTES # (AUTO) 1.3 10^3/uL (1.0-4.0); LYMPHOCYTES % (AUTO) 12 % (12-44); MEAN CORPUSCULAR HEMOGLOBIN 30 pg (25-34); MEAN CORPUSCULAR HGB CONC 34 g/dL (32-36); MEAN CORPUSCULAR VOLUME 89 fL (80-99); MEAN PLATELET VOLUME 10.4 fL (9.0-12.2); MONOCYTES # (AUTO) 0.7 10^3/uL (0.0-1.0); MONOCYTES % (AUTO) 7 % (0-12); NEUTROPHILS # (AUTO) 9.2 10^3/uL (1.8-7.8); NEUTROPHILS % (AUTO) 81 % (42-75); PLATELET COUNT 451 10^3/uL (130-400); WHITE BLOOD COUNT 11.3 10^3/uL (4.3-11.0)
[2021-07-11 06:05] LABS: POTASSIUM 3.7 MMOL/L (3.6-5.0)
[2021-07-11 06:06] LABS: CALCIUM 8.5 MG/DL (8.5-10.1)
[2021-07-11 06:10] LABS: CREATININE SERUM 0.68 MG/DL (0.60-1.30); PHOSPHORUS 3.1 MG/DL (2.3-4.7)
[2021-07-11 06:13] LABS: MAGNESIUM 2.1 MG/DL (1.6-2.4)
[2021-07-11] MEDS: ENOXAPARIN 80 MG/0.8 ML (LOVENOX) SYR SC SCH ×2 (09:08→21:08)
[2021-07-11] MEDS: BARICITINIB 2 MG (OLUMIANT)TABLET PO SCH (09:08)
--- NOTE | 2021-07-11 13:20 | Progress Note - Hospitalist ---
Subjective HPI/CC On Admission Date Seen by Provider: Jul 11, 2021 Time Seen by Provider: 13:17 Pt is a 60yoCM with a PMH of DMII who presented to the ER due to hypoxia. He was diagnosed with COVID on 07/02 and symptoms began 06/27. he was supposed to get the monoclonal antibody infusion today but when he presented to the infusion center he was alegria in color and hypoxic. He was referred to the ER. He was satting 83% on arrival and placed on 10lpm and ultimately required vapotherm to maintain sats. He reports persistent cough and shortness of breath but denies nausea, vomiting, diarrhea. He reports feeling much better now that he is on oxygen than when he arrived. He is mostly concerned about checking on his as he forgot his cell phone. Subjective/Events-last exam pt reports feeling well. No complaints. Still on 6lpm. Focused Exam Lactate Level 07/08/21 13:25: Lactic Acid Level 1.42 Objective Exam Vital Signs Vital Signs Date Time Temp Pulse Resp B/P (MAP) Pulse Ox O2 Delivery O2 Flow Rate FiO2 07/11/21 13:00 49 07/11/21 11:55 36.0 24 145/76 (99) 93 High Flow N/C 6.00 07/11/21 08:00 83 Capillary Refill : Less Than 3 Seconds General Appearance: No Apparent Distress, WD/WN Respiratory: No Accessory Muscle Use, Decreased Breath Sounds Cardiovascular: Regular Rate, Rhythm, No Murmur Gastrointestinal: Normal Bowel Sounds, Non Tender, Soft Neurologic/Psychiatric: Alert, Oriented x3 Results/Procedures Lab Laboratory Tests 07/11/21 05:35 Patient resulted labs reviewed. Imaging: Reviewed Imaging Report Assessment/Plan Assessment and Plan Assess & Plan/Chief Complaint Acute hypoxic respiratory failure due to COVID19 Currently on HFNC Continue decadron Continue baricitnib under EUA Does not qualify for remdesivir due to high oxygen requirement Lovenox IS MAT protocol NIDDMII SSI Not normally on medication but does not follow with any physician a1c 9.6 anticipate higher blood sugars due to decadron DVT ppx: Lovenox Critical Care Critically Ill Patient CRYSTAL DUENAS MD Jul 11, 2021 13:20
[2021-07-12 04:13] VITALS: BP 143/87
[2021-07-12 05:41] LABS: BASOPHILS % (AUTO) 0 % (0-10); EOSINOPHILS % (AUTO) 0 % (0-10); HEMATOCRIT 41 % (40-54); HEMOGLOBIN 13.8 g/dL (13.3-17.7); LYMPHOCYTES # (AUTO) 1.4 10^3/uL (1.0-4.0); LYMPHOCYTES % (AUTO) 15 % (12-44); MEAN CORPUSCULAR HEMOGLOBIN 30 pg (25-34); MEAN CORPUSCULAR HGB CONC 34 g/dL (32-36); MEAN CORPUSCULAR VOLUME 89 fL (80-99); MEAN PLATELET VOLUME 11.1 fL (9.0-12.2); MONOCYTES # (AUTO) 0.5 10^3/uL (0.0-1.0); MONOCYTES % (AUTO) 6 % (0-12); NEUTROPHILS # (AUTO) 7.7 10^3/uL (1.8-7.8); NEUTROPHILS % (AUTO) 79 % (42-75); PLATELET COUNT 471 10^3/uL (130-400); WHITE BLOOD COUNT 9.7 10^3/uL (4.3-11.0)
[2021-07-12] MEDS: inSUlin ASPART (NovoLOG) 1 UNIT/0.01 ML (CHARGE PER UNIT) SQ SCH ×4 (05:51→20:48)
[2021-07-12 05:59] LABS: POTASSIUM 3.5 MMOL/L (3.6-5.0)
[2021-07-12 06:00] LABS: CALCIUM 8.4 MG/DL (8.5-10.1)
[2021-07-12 06:04] LABS: CREATININE SERUM 0.67 MG/DL (0.60-1.30); PHOSPHORUS 2.7 MG/DL (2.3-4.7)
[2021-07-12 06:07] LABS: MAGNESIUM 2.1 MG/DL (1.6-2.4)
[2021-07-12] MEDS: CEFEPIME 1,000 MG/SWFI 10 ML IV PUSH IV SCH ×6 (06:07→17:46)
[2021-07-12 08:00] VITALS: BP 143/77
[2021-07-12] MEDS: ENOXAPARIN 80 MG/0.8 ML (LOVENOX) SYR SC SCH ×2 (08:57→20:48)
[2021-07-12] MEDS: BARICITINIB 2 MG (OLUMIANT)TABLET PO SCH (08:57)
[2021-07-12 12:00] VITALS: BP 125/75
--- NOTE | 2021-07-12 14:28 | Progress Note - Hospitalist ---
Subjective HPI/CC On Admission Date Seen by Provider: Jul 12, 2021 Time Seen by Provider: 10:15 Pt is a 60yoCM with a PMH of DMII who presented to the ER due to hypoxia. He was diagnosed with COVID on 07/02 and symptoms began 06/27. he was supposed to get the monoclonal antibody infusion today but when he presented to the infusion center he was alegria in color and hypoxic. He was referred to the ER. He was satting 83% on arrival and placed on 10lpm and ultimately required vapotherm to maintain sats. He reports persistent cough and shortness of breath but denies nausea, vomiting, diarrhea. He reports feeling much better now that he is on oxygen than when he arrived. He is mostly concerned about checking on his as he forgot his cell phone. Subjective/Events-last exam He is feeling about the same. He denies shortness of breath. He is not in any pain. He has been eating and drinking. Objective Exam Vital Signs Vital Signs Date Time Temp Pulse Resp B/P (MAP) Pulse Ox O2 Delivery O2 Flow Rate FiO2 07/12/21 12:42 56 07/12/21 12:00 35.8 18 125/75 (92) 94 High Flow N/C 6.00 07/12/21 08:00 83 Capillary Refill : Less Than 3 Seconds General Appearance: No Apparent Distress, WD/WN Respiratory: Lungs Clear, Normal Breath Sounds, No Respiratory Distress Cardiovascular: Regular Rate, Rhythm, No Edema, No Murmur Gastrointestinal: Normal Bowel Sounds, Non Tender, Soft Extremity: Normal Inspection, Non Tender, No Pedal Edema Neurologic/Psychiatric: Alert, Oriented x3, No Motor/Sensory Deficits, Normal Mood/Affect Skin: Normal Color, Warm/Dry Results/Procedures Lab Laboratory Tests 07/12/21 04:45 Patient resulted labs reviewed. Imaging: Reviewed Imaging Report Assessment/Plan Assessment and Plan Assess & Plan/Chief Complaint Acute respiratory failure due to COVID-19 Continue supplemental oxygen Continue decadron Continue baricitnib under EUA Does not qualify for remdesivir due to high oxygen requirement Lovenox IS MAT protocol T2DM with hyperlycemia A1c 9.6 Sliding scale DVT ppx: Lovenox Diagnosis/Problems Diagnosis/Problems (1) Acute respiratory failure due to COVID-19 Status: Acute (2) Pneumonia due to COVID-19 virus Status: Acute (3) T2DM (type 2 diabetes mellitus) Status: Acute Qualifiers: Diabetes mellitus skilled nursing insulin use: without skilled nursing use Diabetes m ellitus complication status: with hyperglycemia Qualified Codes: E11.65 - Type 2 diabetes mellitus with hyperglycemia SUYAPA SAGE MD Jul 12, 2021 14:28
[2021-07-12 17:00] VITALS: BP 143/77
[2021-07-12 20:23] VITALS: BP 138/77
[2021-07-12 23:55] VITALS: BP 159/86
[2021-07-13] MEDS: CEFEPIME 1,000 MG/SWFI 10 ML IV PUSH IV SCH ×6 (00:05→11:22)
[2021-07-13 04:39] VITALS: BP 129/85
[2021-07-13] MEDS: inSUlin ASPART (NovoLOG) 1 UNIT/0.01 ML (CHARGE PER UNIT) SQ SCH ×3 (06:01→17:56)
[2021-07-13 06:13] LABS: BASOPHILS % (AUTO) 0 % (0-10); EOSINOPHILS % (AUTO) 0 % (0-10); HEMATOCRIT 42 % (40-54); HEMOGLOBIN 14.1 g/dL (13.3-17.7); LYMPHOCYTES # (AUTO) 1.6 10^3/uL (1.0-4.0); LYMPHOCYTES % (AUTO) 14 % (12-44); MEAN CORPUSCULAR HEMOGLOBIN 31 pg (25-34); MEAN CORPUSCULAR HGB CONC 34 g/dL (32-36); MEAN CORPUSCULAR VOLUME 90 fL (80-99); MEAN PLATELET VOLUME 10.8 fL (9.0-12.2); MONOCYTES % (AUTO) 9 % (0-12); NEUTROPHILS % (AUTO) 77 % (42-75); PLATELET COUNT 496 10^3/uL (130-400); WHITE BLOOD COUNT 11.7 10^3/uL (4.3-11.0)
[2021-07-13 06:27] LABS: CALCIUM 8.7 MG/DL (8.5-10.1)
[2021-07-13 06:31] LABS: CREATININE SERUM 0.78 MG/DL (0.60-1.30); PHOSPHORUS 3.1 MG/DL (2.3-4.7)
[2021-07-13 08:00] VITALS: BP 129/85
[2021-07-13] MEDS: BARICITINIB 2 MG (OLUMIANT)TABLET PO SCH (08:53)
[2021-07-13] MEDS: ENOXAPARIN 80 MG/0.8 ML (LOVENOX) SYR SC SCH (08:53)
--- NOTE | 2021-07-13 11:38 | Progress Note - Hospitalist ---
Subjective HPI/CC On Admission Date Seen by Provider: Jul 13, 2021 Time Seen by Provider: 09:50 Pt is a 60yoCM with a PMH of DMII who presented to the ER due to hypoxia. He was diagnosed with COVID on 07/02 and symptoms began 06/27. he was supposed to get the monoclonal antibody infusion today but when he presented to the infusion center he was alegria in color and hypoxic. He was referred to the ER. He was satting 83% on arrival and placed on 10lpm and ultimately required vapotherm to maintain sats. He reports persistent cough and shortness of breath but denies nausea, vomiting, diarrhea. He reports feeling much better now that he is on oxygen than when he arrived. He is mostly concerned about checking on his as he forgot his cell phone. Subjective/Events-last exam He denies shortness of breath. He denies pain. He has no complaints or concerns. He wants to go home. Objective Exam Vital Signs Vital Signs Date Time Temp Pulse Resp B/P (MAP) Pulse Ox O2 Delivery O2 Flow Rate FiO2 07/13/21 08:00 36.0 62 20 129/85 (100) 91 High Flow N/C 6.00 07/12/21 08:00 83 Capillary Refill : Less Than 3 Seconds General Appearance: No Apparent Distress, WD/WN Respiratory: Lungs Clear, Normal Breath Sounds, No Respiratory Distress Cardiovascular: Regular Rate, Rhythm, No Edema, No Murmur Gastrointestinal: Normal Bowel Sounds, Non Tender, Soft Extremity: Normal Inspection, Non Tender, No Pedal Edema Neurologic/Psychiatric: Alert, Oriented x3, No Motor/Sensory Deficits, Normal Mood/Affect Skin: Normal Color, Warm/Dry Results/Procedures Lab Laboratory Tests 07/13/21 05:50 Patient resulted labs reviewed. Imaging: Reviewed Imaging Report Assessment/Plan Assessment and Plan Assess & Plan/Chief Complaint Acute respiratory failure due to COVID-19 Continue supplemental oxygen Perform home oxygen study tomorrow Continue decadron Continue baricitnib under EUA Did not qualify for remdesivir due to high oxygen requirement Lovenox IS MAT protocol T2DM with hyperlycemia Not taking any home meds A1c 9.6 Sliding scale DVT ppx: Lovenox Diagnosis/Problems Diagnosis/Problems (1) Acute respiratory failure due to COVID-19 Status: Acute (2) Pneumonia due to COVID-19 virus Status: Acute (3) T2DM (type 2 diabetes mellitus) Status: Acute Qualifiers: Diabetes mellitus nursing home 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
[2021-07-13 12:00] VITALS: BP 106/73
[2021-07-13 16:20] VITALS: BP 124/73
[2021-07-13 20:50] VITALS: BP 101/61
[2021-07-13] MEDS: inSUlin ASPART (NovoLOG) 1 UNIT/0.01 ML (CHARGE PER UNIT) SC SCH (22:42)
[2021-07-13 23:59] VITALS: BP 122/76
[2021-07-14 03:24] VITALS: BP 142/82
[2021-07-14] MEDS: inSUlin ASPART (NovoLOG) 1 UNIT/0.01 ML (CHARGE PER UNIT) SC SCH ×2 (05:54→13:18)
[2021-07-14 06:05] LABS: BASOPHILS % (AUTO) 0 % (0-10); EOSINOPHILS % (AUTO) 0 % (0-10); HEMATOCRIT 41 % (40-54); HEMOGLOBIN 13.6 g/dL (13.3-17.7); LYMPHOCYTES # (AUTO) 1.7 10^3/uL (1.0-4.0); LYMPHOCYTES % (AUTO) 14 % (12-44); MEAN CORPUSCULAR HEMOGLOBIN 30 pg (25-34); MEAN CORPUSCULAR HGB CONC 33 g/dL (32-36); MEAN CORPUSCULAR VOLUME 91 fL (80-99); MEAN PLATELET VOLUME 10.9 fL (9.0-12.2); MONOCYTES # (AUTO) 0.9 10^3/uL (0.0-1.0); MONOCYTES % (AUTO) 7 % (0-12); NEUTROPHILS # (AUTO) 9.5 10^3/uL (1.8-7.8); NEUTROPHILS % (AUTO) 77 % (42-75); PLATELET COUNT 571 10^3/uL (130-400); WHITE BLOOD COUNT 12.4 10^3/uL (4.3-11.0)
[2021-07-14 06:09] LABS: POTASSIUM 4.2 MMOL/L (3.6-5.0)
[2021-07-14 06:10] LABS: CALCIUM 8.9 MG/DL (8.5-10.1)
[2021-07-14 06:14] LABS: CREATININE SERUM 0.75 MG/DL (0.60-1.30); PHOSPHORUS 3.6 MG/DL (2.3-4.7)
[2021-07-14 06:16] LABS: MAGNESIUM 1.9 MG/DL (1.6-2.4)
[2021-07-14] MEDS ORDERED: metFORMIN 500 MG (GLUCOPHAGE) TAB PO SCH (07:00)
[2021-07-14] MEDS ORDERED: dexAMETHasone 6 MG TAB (DECADRON) PO SCH (07:00)
[2021-07-14 08:00] VITALS: BP 133/78
[2021-07-14] MEDS ORDERED: ENOXAPARIN 40 MG/0.4 ML (LOVENOX) SYR SC SCH (09:00)
[2021-07-14] MEDS: BARICITINIB 2 MG (OLUMIANT)TABLET PO SCH (09:59)
[2021-07-14] MEDS ORDERED: METF-397 PO (10:11)
--- NOTE | 2021-07-14 10:33 | Discharge Summary ---
Discharge Summary Hospital Course Was the Problem List Reviewed?: Yes Problems/Dx: (1) Acute respiratory failure due to COVID-19 Status: Acute (2) Pneumonia due to COVID-19 virus Status: Acute (3) T2DM (type 2 diabetes mellitus) Status: Acute Qualifiers: Qualified Codes: E11.65 - Type 2 diabetes mellitus with hyperglycemia Hospital Course Date of Admission: Jul 08, 2021 at 12:00 Admission Diagnosis: Acute respiratory failure due to COVID-19 Family Physician/Provider: Malou Ruiz Date of Discharge: 07/14/21 Discharge Diagnosis: Acute respiratory failure due to COVID-19 Hospital Course: Jose Raul Riley is a 60-year-old male who was admitted with acute respiratory failure due to COVID-19. He was treated with Decadron and baricitinib. He required Vapotherm on arrival but quickly transitioned to nasal cannula. An oxygen evaluation revealed a requirement of 1 L continuously on 3 L with exertion at the time of discharge. His course was complicated by uncontrolled type 2 diabetes mellitus. He had not been on medications previously. He was started on Metformin which will need to be titrated up. He did not have a primary care physician and was set up with a follow-up appointment at the [facility]. He was discharged home in stable condition. Labs and Pending Lab Test: Laboratory Tests 07/13/21 11:09: Glucometer 400*H 07/13/21 16:29: Glucometer 440*H 07/13/21 21:00: Glucometer 361H 07/14/21 05:05: White Blood Count 12.4H, Red Blood Count 4.47, Hemoglobin 13.6, Hematocrit 41, Mean Corpuscular Volume 91, Mean Corpuscular Hemoglobin 30, Mean Corpuscular Hemoglobin Concent 33, Red Cell Distribution Width 12.1, Platelet Count 571H, Mean Platelet Volume 10.9, Immature Granulocyte % (Auto) 2, Neutrophils (%) (Auto) 77H, Lymphocytes (%) (Auto) 14, Monocytes (%) (Auto) 7, Eosinophils (%) (Auto) 0, Basophils (%) (Auto) 0, Neutrophils # (Auto) 9.5H, Lymphocytes # (Auto) 1.7, Monocytes # (Auto) 0.9, Eosinophils # (Auto) 0.0, Basophils # (Auto) 0.0, Immature Granulocyte # (Auto) 0.2H, Sodium Level 134L, Potassium Level 4.2, Chloride Level 101, Carbon Dioxide Level 25, Anion Gap 8, Blood Urea Nitrogen 18, Creatinine 0.75, Estimat Glomerular Filtration Rate 107, BUN/Creatinine Ratio 24, Glucose Level 170H, Calcium Level 8.9, Phosphorus Level 3.6, Magnesium Level 1.9 07/14/21 05:16: Glucometer 164H Microbiology 07/09/21 Urine Culture - Final, Complete Mixed Bacterial Mavis Gina tropicalis 07/08/21 MRSA Screen - Final, Complete MRSA not isolated 07/08/21 Blood Culture - Final, Complete No growth Home Meds Active Metformin HCl 500 Mg Tablet 500 Mg PO DAILY@07 30 Days Assessment/Pt Instructions Take medications as prescribed. Establish care with a primary care physician. Return with worsening shortness of breath or if you feel like you are getting worse. Discharge Planning: <30 minutes discharge planning Discharge Instructions Discharge Diet: No Restrictions Activity as Tolerated: Yes Discharge Physical Examination Vital Signs Vital Signs Date Time Temp Pulse Resp B/P (MAP) Pulse Ox O2 Delivery O2 Flow Rate FiO2 07/14/21 08:05 73 94 3.00 88 07/14/21 03:24 36.9 20 142/82 (102) High Flow N/C 07/13/21 08:00 83 General Appearance: No Apparent Distress, WD/WN Respiratory: Lungs Clear, Normal Breath Sounds, No Respiratory Distress Cardiovascular: Regular Rate, Rhythm, No Edema, No Murmur Gastrointestinal: Normal Bowel Sounds, Non Tender, Soft Extremity: Normal Inspection, Non Tender, No Pedal Edema Skin: Normal Color, Warm/Dry Neurologic/Psychiatric: Alert, Oriented x3, No Motor/Sensory Deficits, Normal Mood/Affect Allergies: Coded Allergies: No Known Drug Allergies (Unverified , 07/08/21) Discharge Summary Date of Admission Jul 08, 2021 at 12:00 Date of Discharge Discharge Date: Jul 14, 2021 Discharge Time: 10:32 Admission Diagnosis Acute hypoxic respiratory failure due to COVID19 Discharge Diagnosis Acute respiratory failure due to COVID-19 T2DM with hyperlycemia (1) Acute respiratory failure due to COVID-19 Status: Acute (2) Pneumonia due to COVID-19 virus Status: Acute (3) T2DM (type 2 diabetes mellitus) Status: Acute Qualifiers: Qualified Codes: E11.65 - Type 2 diabetes mellitus with hyperglycemia SUYAPA SAGE MD Jul 14, 2021 10:25
--- NOTE | 2021-07-15 12:59 | Physician Query Clarification ---
PQ-Further Specificity Admission/Discharge Admission Date: Jul 08, 2021 at 12:00 Discharge Date: Jul 14, 2021 at 15:50 The medical record reflects the following clinical scenario: History/Risk Factors: Covid, respiratory failure Clinical Findings: Hypoxia, O2 sat 83 Treatment: Vapotherm, Dexamethasone Question: Can you further specify acute respiratory failure per the clinical indicators above? Please document a response in the Progress Notes or Discharge Summary. 1. ARDS, as documented by tele-physician 2. Acute respiratory failure with hypoxia, as documented in summary 3. Other, with explanation of the clinical findings. 4. Clinically undetermined, no explanation for the clinical findings. Please remember a lack of response to the above will prompt a phone page by [facility] staff. In responding to this query, please exercise your independent professional [email or web address] gment. The purpose of this communication is to more accurately reflect the complexity of your patients condition. The fact that a question is asked does not imply that any particular answer is desired or expected. Thank you for your timely response to this clarification. Requestors name: Maggie THIS PHYSICIAN QUERY FORM IS A PERMANENT PART OF THE MEDICAL RECORD MAGGIE FARRAR Jul 15, 2021 12:59
== END 2021-07-14 15:50 | disposition home or self-care (01) | DRG 177 ==
LOC: EDUNIT# 10:08 → ER 10:10 → ICU 12:00 → 4TH 07-10 11:36
PROVIDERS: ADMIT Family Medicine; ATTEND Internal Medicine
DX: U07.1 COVID-19 (principal); J12.82 Pneumonia due to coronavirus disease 2019; J80 Acute respiratory distress syndrome; J15.9 Unspecified bacterial pneumonia; E11.65 Type 2 diabetes mellitus with hyperglycemia; Z73.0 Burn-out
CPT/HCPCS: 36415; 71045; 80048; 80053; 81000; 82805; 82947; 83036; 83605; 83615; 83735; 84100; 84145; 85025; 85379; 85610; 85730; 86141; 87040; 87081; 87088; 87106; 94664; 94760; 94761; 96361; 96372; 96374; 96375; 99291

== ENCOUNTER → 2021-07-08 | Outpatient (CLI) | payer MEDICAID | LOC: INFUSION 09:57 | PROVIDERS: ATTEND Nurse Practitioner Family | DX: Z23 Encounter for immunization (principal); U07.1 COVID-19 ==